=== PATIENT | male | born 1940 | race Caucasian/White ===

== ENCOUNTER → 2017-01-13 | Outpatient (REF) ==
[~2017-01-13] MED LIST: ASPIRIN 81M81 MG/TA2 PO; BETAPACE 80MG80 MG PO; NORVASC 10MG10 MG PO; PRINZIDE 12.5 M1 TAB PO
== END ==
LOC: ZLAB.WCH 18:38
DX: Z01.89 Encounter for other specified special examinations (principal)

== ENCOUNTER → 2017-05-30 | Outpatient (REF) | LOC: ZLAB.WCH 18:05 | DX: Z01.89 Encounter for other specified special examinations (principal) ==

== ENCOUNTER 2017-06-11 10:50 | Day surgery (SDC) | payer MEDICARE, BC ==
[2017-06-11] VITALS (7 sets, daily range): BP systolic 114–171; BP diastolic 64–81; PULSE 54–68; TEMP 97.3–97.5
[~2017-06-11] VITALS: Ht 182.9 cm; Wt 100.9 kg
[2017-06-11] MEDS ORDERED: K-DUR 10 MEQ T10 MEQ PO (11:44)
[2017-06-11] MEDS ORDERED: TAPAZOLE5 MG PO (11:45)
[2017-06-11] MEDS ORDERED: RT ADVAIR 228 DISKUS IH (11:47)
[2017-06-11] MEDS ORDERED: LINZESS145CAP PO (11:47)
== END 2017-06-11 17:45 | disposition home or self-care (01) ==
LOC: SDCO 10:50
DX: N43.3 Hydrocele, unspecified (principal); I48.91 Unspecified atrial fibrillation; E11.9 Type 2 diabetes mellitus without complications; J43.9 Emphysema, unspecified; I10 Essential (primary) hypertension; E66.9 Obesity, unspecified; J45.909 Unspecified asthma, uncomplicated; Z68.29 Body mass index [BMI] 29.0-29.9, adult; Z87.891 Personal history of nicotine dependence; Z82.49 Family history of ischemic heart disease and other diseases of the circulatory system
CPT/HCPCS: J2250; J2704; J3010; J7120

== ENCOUNTER → 2018-07-09 | Outpatient (REF) ==
[~2018-07-09] MED LIST changes: +K-DUR 10 MEQ T10 MEQ PO; +LINZESS145CAP PO; +RT ADVAIR 228 DISKUS IH; +TAPAZOLE5 MG PO
[2018-07-09 18:40] LABS: PSA-TOTAL 3.31 ng/mL (0-4)
== END ==
LOC: ZLAB.WCH 17:43
PROVIDERS: Internal Medicine
DX: Z01.89 Encounter for other specified special examinations (principal)
CPT/HCPCS: G0103